=== PATIENT | male | born 1985 | race Caucasian/White ===

== ENCOUNTER 2017-08-18 18:46 | Emergency (ER) | payer OTHER ==
--- NOTE | 2017-08-18 19:54 | ED Physician Documentation ---
PD HPI CHEST PAIN - Stated complaint Stated Complaint: RIB PX - Chief complaint Chief Complaint: General - History obtained from History obtained from: Patient - History of Present Illness Timing - onset: How many months ago (1) Timing - onset during: Light activity (had onset of it in December with injury and was some improved but some tender at times with activity. Has been more consistently hurting and tender to touch the past month without new injury per se.) Timing - details: Gradual onset, Waxing and waning Quality: Aching, Sharp Location: Other (right lower cartilage of ribs) Worsened by: Movement, Palpation (and he feels that the lower rib end is pointed out/dislocated.). No: Inspiration Review of Systems Constitutional: denies: Fever, Chills Nose: denies: Rhinorrhea / runny nose, Congestion Throat: denies: Sore throat Cardiac: denies: Palpitations, Pedal edema, Calf pain GI: denies: Abdominal Pain, Vomiting Skin: denies: Rash PD PAST MEDICAL HISTORY - Past Medical History Cardiovascular: None Respiratory: None Neuro: None Endocrine/Autoimmune: None Musculoskeletal: None - Present Medications Home Medications: Ambulatory Orders Medication Instructions Recorded Confirmed No Known Home Medications [No 08/18/17 08/18/17 Known Home Medications] - Allergies Allergies/Adverse Reactions: Allergies Allergy/AdvReac Type Severity Reaction Status Date / Time No Known Drug Allergies Allergy Verified 08/18/17 18:54 PD ED PE NORMAL - Vitals Vital signs reviewed: Yes - General General: Alert and oriented X 3, No acute distress, Well developed/nourished - HEENT HEENT: Pharynx benign - Neck Neck: Supple, no meningeal sign, No adenopathy - Cardiac Cardiac: RRR, No murmur - Respiratory Respiratory: Clear bilaterally, Other (focal tenderness at end of feels like rib 11 at cartilage mid clavicular line with the rib end slightly forward. No clicking nor crepitance with palpation. Focally tender without rash, redness, sores. ) - Abdomen Abdomen: Soft, Non tender - Derm Derm: Normal color, Warm and dry, No rash - Extremities Extremities: No edema, No calf tenderness / cord Results - Vitals Vitals: Oxygen O2 Source Room air - Rads (name of study) chest Radiology: Prelim report reviewed, EMP read contemporaneously (normal) PD MEDICAL DECISION MAKING - ED course Complexity details: considered differential (focal tenderness at costal cartilage and he has beeen trying NSAIDs without improvement. Offered and did focal injection with Marcaine/Kenalog.), d/w patient Departure - Departure Disposition: 01 Home, Self Care Clinical Impression: Costochondral chest pain Condition: Stable Record reviewed to determine appropriate education?: Yes Instructions: ED Chest Pain Costochondritis Follow-Up: Carlene Bernardo MD [Primary Care Provider] - Comments: I would consider using some ibuprofen 400 600 mg twice a day for the next 5-7 days I would also injected locally in that area with some steroid medication to decrease inflammation as well. Consider seeing a chiropractic provider as they have more of a skill set for manipulation of the rib if they think it is out of place and can be put back in. If the cartilage was injured a bit ago it may just be healed in a different position and have inflammation of it right now. Discharge Date/Time: 08/18/17 21:02
[2017-08-18] MEDS ORDERED: TRIAMCINOLONE 40 MG/ML VIAL IM STA (20:23)
[2017-08-18] MEDS ORDERED: TRIAMCINOLONE 40 MG/ML VIAL ONE (20:39)
[2017-08-18 20:56] VITALS: BP 107/66
== END 2017-08-18 21:02 | disposition home or self-care (01) ==
LOC: ED 18:46
DX: R07.89 Other chest pain (principal)
CPT/HCPCS: 96372; 99283

== ENCOUNTER 2022-10-01 15:52 | Outpatient (CLI) | payer OTHER ==
--- NOTE | 2022-10-01 18:08 | XRAY Report ---
PROCEDURE: Ribs 2 View RT INDICATIONS: STRAIN OF MUSCLE AND TENDON OF BACK WALL OF THORAX TECHNIQUE: 4 views of the right ribs along with PA chest were acquired. COMPARISON: None FINDINGS: Surgical changes and devices: None. Bones and chest wall: No acute fractures or dislocations. There is a slight sclerotic deformity and osseous hypertrophy suspected along the anterior costochondral margin of the right seventh rib arcs. Reportedly this corresponds with prior injury. Patient's current pain is posterior. No suspicious bon y lesions. Overlying soft tissues appear unremarkable. Lungs and pleura: The visualized lung appears clear. No pleural effusions or pneumothorax are visib le. IMPRESSION: 1. No evidence of acute rib fracture. 2. No evidence of acute underlying chest trauma. 3. Hypertrophic osseous deformity along the anterior right seventh rib arc likely result of prior inj ury. Reviewed by: Susy Jose MD on 10/01/2022 6:06 PM PST Approved by: Susy Jose MD on 10/01/2022 6:06 PM PST Station ID: [id number]
== END 2022-10-01 15:53 | disposition home or self-care (01) ==
LOC: DI 15:52
PROVIDERS: ATTEND Physician Assistant Medical
DX: S29.012A Strain of muscle and tendon of back wall of thorax, initial encounter (principal)